=== PATIENT | female | born 1980 | race Caucasian/White ===

== ENCOUNTER 2022-04-26 08:52 | Outpatient (CLI) | payer BC, SELFPAY ==
[2022-04-26 10:26] LABS: Cholesterol* 181 mg/dL (90-199)
[2022-04-26 10:27] LABS: Glucose* 85 mg/dL (60-115); HDL Cholesterol* 84 mg/dL (>=50); LDL Cholesterol Calculated 86 mg/dL (<100); Triglycerides* 54 mg/dL (40-149)
[2022-04-26 15:13] LABS: Free T4 Free Thyroxine* 0.94 ng/dL (0.70-1.85)
== END 2022-04-26 08:53 | disposition home or self-care (01) ==
PROVIDERS: PCP Family Medicine; Visit Provider Family Medicine
DX: Z01.419 Encounter for gynecological examination (general) (routine) without abnormal findings (principal); F41.9 Anxiety disorder, unspecified; R79.89 Other specified abnormal findings of blood chemistry; Z13.1 Encounter for screening for diabetes mellitus; Z13.6 Encounter for screening for cardiovascular disorders
CPT/HCPCS: 80061; 82947; 84439; 84443

== ENCOUNTER 2022-07-26 17:31 | Outpatient (CLI) | payer BC, SELFPAY ==
--- NOTE | 2022-07-26 18:00 | CRLHL7_ITS ---
For Patients: As a result of the Cures Act, medical imaging exams and procedure reports are released immediately into your electronic medical record. You may view this report before your referring provider. If you have questions, please contact your health care provider. BILATERAL SCREENING MAMMOGRAM WITH COMPUTER-AIDED DETECTION AND TOMOSYNTHESIS TECHNIQUE: CC and MLO views were obtained. These mammographic images have been obtained using full-field digital technique. These mammographic images were interpreted with the benefit of computer-aided detection. Breast tomosynthesis was used in this interpretation. COMPARISON FILM: None. This is a baseline study. FINDINGS: The breasts are heterogeneously dense, which may obscure small masses. IMPRESSION: There is no radiographic evidence for malignancy. ASSESSMENT: BI-RADS Category 2: Benign RECOMMENDATION: Routine screening mammogram in 1 year. A lay language report of this examination will be provided to the patient. CHARLEE MARTINEZ M.D. Diagnostic/Breast Radiologist [email or web address] Transcribed: 07/27/2022, 2:[address]/Dictated by: Charlee Martinez MD @ 07/27/2022 8:20:00 AM (Electronically Signed)
== END 2022-07-26 17:32 | disposition home or self-care (01) ==
LOC: MAMMO 17:32
PROVIDERS: PCP Family Medicine; Visit Provider Family Medicine
DX: Z12.31 Encounter for screening mammogram for malignant neoplasm of breast (principal); R92.2 Inconclusive mammogram
CPT/HCPCS: 77063; 77067

== ENCOUNTER 2023-06-25 06:49 | Emergency (ER) | payer BC, SELFPAY ==
[2023-06-25 06:55] VITALS: BP 128/84; PULSE 105; RESP 18; TEMP 36.6; O2SAT 99; BMI 21.5
--- NOTE | 2023-06-25 07:38 | ED.GENADULT ---
HPI - General Adult General Chief complaint: Anxiety Stated complaint: shortness of breath, anxiety Time Seen by Provider: 06/25/23 06:56 Source: patient Mode of arrival: ambulatory Limitations: no limitations History of Present Illness HPI narrative: 42-year-old female presents the emergency department with concerns with anxiety, amplifying over the last few days. She also has concerns about the veins in her legs and is concerned that this could be related to a blood clot. She does have a history of anxiety disorder. She has used ashwaganda with route supplement starting 5 years ago. She discontinued this about 4 months ago. She says that she discontinued it when she was feeling unwell with respiratory symptoms that I interpret as the an acute viral illness and never restarted the medication. She states that she has been feeling more anxious for the last few days, becoming fixated on the possibility of blood clots in her legs. Her father of an SD and pulmonary embolism at age 51. It sounds as though this was sudden and surprising. She has become fixated on the possibility of blood clots in her legs in the past. Once, her provider, in attempt to reduce her worry, ordered a D-dimer which was elevated. This can commonly be elevated in runners. She then subsequently had a ultrasound of legs and apparently some sort of lung study which were benign. She shows me very mildly tortuous superficial spider veins around the knee and ankle. She reports that these have been present for at least several weeks but probably longer. They do go back down during the day and are a little more prominent 1st thing in the morning. No trauma or injury. They are bilateral. They are little more prominent on the left side. They do not hurt. There is no significant swelling in the leg. She does get short of breath with anxiety. 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 She has not noticed any decrease in her exercise capacity, speed or fitness level. She has never been hospitalized for her moods and denies any intent of self-harm, suicidal thoughts or general impairment in her functioning due to her anxiety. Denies any acute financial, social changes or other stressors that have impacted her anxiety recently. She has not seen her primary care provider or been evaluated in the emergency department recently for this. Note reviewed from 2018. Past medical history is notable for some concerns regarding anxiety. Family history noted as stated above. No prescription medications but did recently restart the root supplement as stated above. No allergies. Nonsmoker. Very rare alcohol useer. ROS is notable for the anxiety, chest, leg concerns as described above only, otherwise denies times 12 systems. Related Data Home Medications Medication Instructions Recorded Confirmed multivitamin 1 tab PO QDAY 03/04/22 05/18/22 omega 6-mhm-pyp-fish oil 100 1 cap PO QDAY 03/04/22 05/18/22 mg-160 mg-1,000 mg capsule (Fish Oil) lactobacillus combination no.9 4 4,000 mmu cells PO 04/26/22 05/18/22 billion cell capsule (Adult 50 Plus Probiotic) ashwagandha root extract 300 mg mg PO 05/18/22 05/18/22 capsule turmeric 400 mg capsule mg PO 05/18/22 05/18/22 Previous Rx's Medication Instructions Recorded hydroxyzine pamoate 25 mg capsule 25 mg PO BID PRN anxiety #30 caps 06/25/23 (Vistaril) Allergies Allergy/AdvReac Type Severity Reaction Status Date / Time No Known Drug Allergies Allergy Unverified 05/18/22 07:23 [facility] Medical History Pain of left breast ?N64.4 - Mastodynia (ICD-10) History of varicella ?Z86.19 - Personal history of other infectious and parasitic diseases (ICD-10) Anxiety about health ?F41.8 - Other specified anxiety disorders (ICD-10) Anxiety ?F41.9 - Anxiety disorder, unspecified (ICD-10) Acne (12/26/14) ?L70.9 - Acne, unspecified (ICD-10) Abnormal finding on thyroid function test ?R94.6 - Abnormal results of thyroid function studies (ICD-10) Surgical History History of dilation and curettage (2005) ?Z98.890 - Other specified postprocedural states (ICD-10) Family History Paternal Grandmother Breast cancer, Onset Age: 75 Mother High blood pressure Father Myocardial infarction, Onset Age: 51 Social History Narrative: , 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[place], 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 3-4 times week- runs about 3-1/2 mi, also walks her 2 dogs non-smoker Rare alcohol, 3 drinks a month Smoking Status: Never smoker Little interest or pleasure in doing things: not at all Feeling down, depressed, or hopeless: not at all Exam Const: Vital Signs, click to edit/add: Vital Signs - 24 hr 06/25/23 06:55 Temperature 97.9 F Pulse Rate [Pulse Oximeter] 105 H Respiratory Rate 18 Blood Pressure [Ri ght Upper Arm] 128/84 Pulse Oximetry 99 Oxygen Delivery Me thod Room Air Documenting provider has reviewed patient's vital signs: yes Common normals: no apparent distress and alert General appearance: cooperative, comfortable and well kempt Other: Well hydrated, well groomed, well nourished. Speaks in full sentences, logical. Insightful. HENMT: Common normals: normocephalic Head and scalp: normal to inspection and normocephalic Mouth: oral and palatal mucosa normal Throat: posterior oropharynx normal Eye: Common normals: conjunctivae normal General eye: normal appearance of both eyes Conjunctiva: conjunctiva(e) normal Neck & C-Spine: Common normals: full ROM and no lymphadenopathy Resp: Common normals: normal respiratory effort and no use of accessory muscles Effort & inspection: able to speak in complete sentences Cardio: Common normals: regular rate, regular rhythm, S1 normal heart sound, S2 normal heart sound and no murmurs Rate: regular rate Rhythm: regular rhythm Heart sounds: S1 normal and S2 normal GI: Common normals: Normal to inspection, nondistended, normoactive bowel sounds present, soft to palpation, non-tender, no hepatosplenomegaly and no masses Palpation: soft and no hepatosplenomegaly Extremity: Common normals: normal to inspection, full ROM, normal capillary refill, no joint enlargement, no calf tenderness and no pedal edema Other: Very few spider veins on the lower extremities near the joints but certainly no signs of blood clot, no palpable cords, negative Homans sign. No tortuous varicosities. Neuro: Sensorium/orientation: alert Speech: speech normal Motor exam: no tremor noted and no movement abnormalities noted Psych: Common normals: thought process normal and speech normal Appearance: well kempt Attitude: engaged Activity/motor behavior: appropriate eye contact Speech: normal speech Mood and affect: euthymic mood Thought process: normal thought process Thought content: normal thought content Attention/concentration: attention grossly intact Memory/cognition: memory grossly intact Insight: insight good Judgement: judgment good Other: Mildly anxious but easily redirectable. Skin: Common normals: no rashes or lesions noted General skin exam: no rashes or lesions noted Course Course ED Course: Heart rate improved at the time of my exam to below 90. Patient with history of anxiety, recently restarting a vitamin supplement which has been helpful for her anxiety in the past. Showing some signs of fixation on health concerns which are really not substantiated by exam today. Patient counseled on the anatomy of the deep and superficial vein systems, discussed exercise tolerance as a good indicator of heart and lung issues for non severe, sudden symptoms. Her reassured on the venous findings. I do not recommend that we repeat her D-dimer as it will likely be a little elevated as it has genetically benzo in the past. I do not recommend ultrasounds of the leg since the physical exam is so benign and she does not have additional risk factors for DVT. Cardiopulmonary exam is also reassuring. I do not recommend further workup on this and do review the previously performed blood tests. We discussed long-term verses short-term management of her anxiety. For short-term anxiety, I have recommended an on demand medications such as either Ativan or Vistaril. We discussed each and she was willing to take her prescription for Vistaril but not a tablet to try here in the ED. a prescription will be sent to her pharmacy per her request. I have encouraged her to try this today so that she can assess her response to the medication. This would give her useful information if she needed to use the medication again in the future. Additional refills are need to come from her primary care provider. Counseled on long-term management of her anxiety, she would be a good candidate to restart counseling. Discussed continuing her route supplement. It has been helpful for her in the past, therefore I would recommend that she give it at least 2-3 weeks to assess clinical response. Would like for her to make a follow-up appointment with her primary care provider 3 weeks from now to update on progress and change of course if insufficient progress. She would be a candidate for low-dose SSRI or a low-dose extended-release propranolol either as an on demand or daily medication. She will discuss these further with her primary care provider if she is not making sufficient progress with her plan. Reviewed alarm symptoms that would warrant ED presentation. She verbalizes understanding and agreement and is happy with the conservative management for today. Vital Signs Vital signs: Initial Vital Signs Temperature 97.9 F 06/25/23 06:55 Temperature Source Temporal Artery Scan 06/25/23 06:55 Pulse Rate 105 H 06/25/23 06:55 Respiratory Rate 18 06/25/23 06:55 Blood Pressure 128/84 06/25/23 06:55 Blood Pressure Mean 98 06/25/23 06:55 Blood Pressure Position Sitting 06/25/23 06:55 Pulse Oximetry 99 06/25/23 06:55 Oxygen Delivery Method Room Air 06/25/23 06:55 Vital Signs Temperature 97.9 F 06/25/23 06:55 Pulse Rate 105 H 06/25/23 06:55 Respiratory Rate 18 06/25/23 06:55 Blood Pressure 128/84 06/25/23 06:55 Pulse Oximetry 99 06/25/23 06:55 Oxygen Delivery Method Room Air 06/25/23 06:55 Temperature 97.9 F 06/25/23 06:55 Pulse Rate 105 H 06/25/23 06:55 Respiratory Rate 18 06/25/23 06:55 Blood Pressure 128/84 06/25/23 06:55 Pulse Oximetry 99 06/25/23 06:55 Oxygen Delivery Method Room Air 06/25/23 06:55 Discharge Plan Discharge Instructions: Generalized Anxiety Disorder (ED) Additional Instructions: As we discussed, the slight aging changes that you see in the superficial veins of your legs are not consistent with problems in the deep vein system. The superficial veins actually do not connect back to the heart and lungs in a way that would be dangerous if there were a blood clot. Thankfully, I also do not see any signs of blood clots in the superficial or deep veins. I do not recommend that we repeat your blood work or ultrasounds regarding this. You agreed with my assessment upon our discussion. I am glad that you decided to restart your supplement. As we discussed, sometimes this can actually increase your anxiety for 3-4 days until it starts to help. I would give this medication about 3 weeks. I would go ahead and make a follow-up appointment with your primary care provider in [address] if things are not improving as expected, you already have an appointment to discuss alternative treatments. Reconsider restarting counseling. We discussed alternative medications that may be helpful for you. I think you could actually be a candidate for low-dose, extended-release propranolol. You would also be a candidate for low-dose SSRI like Lexapro. We discussed on demand medication that you can use for panic attacks. I think he would be a very good fit for these medications. We discussed Vistaril, also known as hydroxyzine. This is a safer, non addictive medication that can be used to help treat acute anxiety. It actually can be used multiple times daily if needed but I suspect you will only need it a couple of times per week on average. The other medication that we discussed is Ativan and we both agree that we should try something product applications engineer 1st but this also may be a consideration for you to use once in a while if the Vistaril is not effective. I have given you a prescription for Vistaril to use. I actually would recommend that you take a dose today so that you can assess your response to the medication and see how well it works for you. This way could serve you better in an on demand situation. If you need additional refills, please discussed with her primary care provider. It is difficult to sort out anxiety and health concerns. At this time, I do not recommend more exhaustive emergency department workup for any acute health concerns today. Remember that as we discussed, almost all heart and blood clot problems will significantly amplify with exercise. Since you have not noticed any changes in your ability to long distance run, this is also somewhat reassuring and may be a better radar for you rather than symptoms at rest in determining if there are problems. You may resume all activity with no restrictions at this time. Activity Level: No Restrictions Discharge Diet: Regular Prescriptions: New hydroxyzine pamoate [Vistaril] 25 mg capsule 25 mg PO BID PRN (Reason: anxiety) Qty: 30 0RF No Action Adult 50 Plus Probiotic 4 billion cell capsule 4,000 mmu cells PO turmeric 400 mg capsule PO ashwagandha root extract 300 mg capsule PO multivitamin Tablet 1 tab PO QDAY Fish Oil 100-160-1,000 mg capsule 1 cap PO QDAY Follow Up/Referrals: Alanis Crouch MD [Primary Care Provider] - Stand Alone Forms: [facility] Info Instructions
== END 2023-06-25 07:47 | disposition home or self-care (01) ==
PROVIDERS: Emergency Provider Family Medicine; PCP Family Medicine
DX: F41.9 Anxiety disorder, unspecified (principal)
CPT/HCPCS: 99283

== ENCOUNTER 2023-06-29 07:54 | Outpatient (CLI) | payer BC, SELFPAY | END 2023-06-29 07:55 | disposition home or self-care (01) | PROVIDERS: PCP Family Medicine; Visit Provider Family Medicine | DX: Z13.220 Encounter for screening for lipoid disorders (principal); Z13.29 Encounter for screening for other suspected endocrine disorder; Z13.1 Encounter for screening for diabetes mellitus | CPT/HCPCS: 80061; 82947; 84443 ==

== ENCOUNTER 2023-08-01 11:14 | Emergency (ER) | payer BC, SELFPAY ==
[2023-08-01 11:17] VITALS: BP 125/87; PULSE 88; RESP 18; TEMP 36.4; O2SAT 100; BMI 22.0
--- NOTE | 2023-08-01 11:55 | ED.GENADULT ---
HPI - General Adult General Chief complaint: Unspecified Complaint, Adult Stated complaint: dizziness, bulging vein on neck Time Seen by Provider: 08/01/23 11:18 History of Present Illness HPI narrative: This 43-year-old female comes in reporting anxiety symptoms and concern about occasional bulging of a vein in the left side of her neck. She states that she is been having palpitations since discontinuing an herbal medicine she used for anxiety. She has restarted this because it was helping her over the past 5 years or so. She has been in to her regular doctor and visited the emergency department here in the past several months. She did get a prescription for Vistaril but states that it did not help her much for anxiety. She is not on any antidepressant medicines. She states that she runs regularly and does not have any symptoms with exertion. She does have palpitations frequently and feels them sometimes also when she is exercising. Her primary concern is her anxiety which has become rather significant. She does not report any feeling of being unsafe to herself. She has started taking propranolol which she states has helped with the palpitations and perhaps some with anxiety symptoms. Related Data Home Medications Medication Instructions Recorded Confirmed multivitamin 1 tab PO QDAY 03/04/22 07/26/23 omega 2-osx-gea-fish oil 100 1 cap PO QDAY 03/04/22 07/26/23 mg-160 mg-1,000 mg capsule (Fish Oil) lactobacillus combination no.9 4 4,000 mmu cells PO 04/26/22 07/26/23 billion cell capsule (Adult 50 Plus Probiotic) ashwagandha root extract 300 mg 300 mg PO .QD 06/29/23 07/26/23 capsule turmeric 400 mg capsule 400 mg PO .QD 06/29/23 07/26/23 Previous Rx's Medication Instructions Recorded hydroxyzine pamoate 25 mg capsule 25 mg PO BID PRN anxiety #30 caps 06/25/23 (Vistaril) propranolol 10 mg tablet 10 mg PO TID #90 tabs 07/26/23 escitalopram oxalate 10 mg tablet 10 mg PO DAILY #30 tabs 08/01/23 (Lexapro) lorazepam 0.5 mg tablet (Ativan) 0.5 mg PO BID PRN #15 tabs 08/01/23 Allergies Allergy/AdvReac Type Severity Reaction Status Date / Time No Known Drug Allergies Allergy Unverified 07/26/23 07:57 Review of Systems Status of ROS: Reports: 10 or more systems reviewed and unremarkable except as noted in History and below Narrative: Constitutional: No fevers, no weight gain or loss. Eyes: No discharge. No vision changes. HENT: No congestion, no sore throat, no ear pain. Cardiovascular: No chest pain. Palpitations. Respiratory: No shortness of breath, no wheezes, no cough. Gastrointestinal: No abdominal pain, no vomiting, no diarrhea. Genitourinary: No dysuria, no hematuria. Musculoskeletal: Normal range of motion. Skin: No rashes, no pruritis. Neurological: No dizziness, weakness, sensory change, speech change. Endo/Heme/Allergies: No bruising or bleeding. No polydipsia. Pysch: no suicidality, no insomnia. She has anxiety symptoms. All other systems reviewed and are negative. [facility] Medical History (Updated 08/01/23 @ 12:26 by Luis Bassett MD) Palpitations ?R00.2 - Palpitations (ICD-10) Pain of left breast ?N64.4 - Mastodynia (ICD-10) History of varicella ?Z86.19 - Personal history of other infectious and parasitic diseases (ICD-10) Anxiety about health ?F41.8 - Other specified anxiety disorders (ICD-10) Anxiety ?F41.9 - Anxiety disorder, unspecified (ICD-10) Acne (12/26/14) ?L70.9 - Acne, unspecified (ICD-10) Abnormal finding on thyroid function test ?R94.6 - Abnormal results of thyroid function studies (ICD-10) Surgical History History of dilation and curettage (2005) ?Z98.890 - Other specified postprocedural states (ICD-10) Family History Paternal Grandmother Breast cancer, Onset Age: 75 Mother High blood pressure Father Myocardial infarction, Onset Age: 51 Social History (Updated 06/29/23 @ 08:09 by Cris Azar~[facility], [facility]) 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: , 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[place], 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 3-4 times week- runs about 3-1/2 mi, also walks her 2 dogs non-smoker Rare alcohol, 3 drinks a month What is your current living situation?: I presently have a place to live Problems where you live: declined to answer In the past 12 months, utilities in danger of being shut off: no In past 12 months, lack of transportation kept you from medical appts, meetings, work, or getting things needed for daily living: no In the past 12 mos, have been you worried that your food would run out before you had money to buy more?: never true In the past 12 mos, the food you bought just didn't last and you didn't have money to buy more?: never true Smoking Status: Never smoker How often does anyone, including family, friends and others, physically hurt you: never How often does anyone, including family, friends and others, insult or talk down to you: never How often does anyone, including family, friends and others, threaten you with harm: never How often does anyone, including family, friends and others, scream or curse at you: never Little interest or pleasure in doing things: not at all Feeling down, depressed, or hopeless: not at all Exam Narrative: Exam Narrative: Constitutional: Well-developed, well-nourished, no acute distress. HEENT: Normocephalic, atraumatic. Neck: Normal range of motion. Nontender. Supple. Heart: Regular. No murmurs. Normal rate. Intact distal pulses. Lungs: Clear to auscultation. No chest discomfort. No wheezes, rhonchi, or rales. Abdomen: Normal bowel sounds. Nontender. No rebound tenderness. Genitalia: Deferred. Back: No midline tenderness. Normal range of motion. Extremities: Normal range of motion. No injury. Skin: Intact. No rash. Warm. No erythema or pallor. Neurologic: No altered sensation. No weakness. Alert and oriented. Psychiatric: No suicidality. No depression. No insomnia. She has report of anxiety symptoms but does not appear overly particularly anxious at the time. Nursing notes and vitals signs are reviewed. Const: Vital Signs, click to edit/add: Vital Signs - 24 hr 08/01/23 11:17 Temperature 97.5 F L Pulse Rate [Right Pulse Oximeter] 88 Respiratory Rate 18 Blood Pressure [Ri ght Upper Arm] 125/87 Pulse Oximetry 100 Oxygen Delivery Me thod Room Air Course Vital Signs Vital signs: Initial Vital Signs Temperature 97.5 F L 08/01/23 11:17 Temperature Source Temporal Artery Scan 08/01/23 11:17 Pulse Rate 88 08/01/23 11:17 Respiratory Rate 18 08/01/23 11:17 Blood Pressure 125/87 08/01/23 11:17 Blood Pressure Mean 99 08/01/23 11:17 Blood Pressure Position Sitting 08/01/23 11:17 Pulse Oximetry 100 08/01/23 11:17 Oxygen Delivery Method Room Air 08/01/23 11:17 Vital Signs Temperature 97.5 F L 08/01/23 11:17 Pulse Rate 88 08/01/23 11:17 Respiratory Rate 18 08/01/23 11:17 Blood Pressure 125/87 08/01/23 11:17 Pulse Oximetry 100 08/01/23 11:17 Oxygen Delivery Method Room Air 08/01/23 11:17 Temperature 97.5 F L 08/01/23 11:17 Pulse Rate 88 08/01/23 11:17 Respiratory Rate 18 08/01/23 11:17 Blood Pressure 125/87 08/01/23 11:17 Pulse Oximetry 100 08/01/23 11:17 Oxygen Delivery Method Room Air 08/01/23 11:17 Medical Decision Making MDM Narrative Medical decision making narrative: This patient reports anxiety symptoms that are not well managed. She has some palpitations also. She has had a visit to the ER and to her primary physician regarding this. She was concerned because she sees some bulging of a vein on occasion in the left side of her neck. She does not have any heart history and shows no sign of heart failure. She exercises and runs regularly without any symptoms. I did discuss cardiovascular factors and gave reassurance to her regarding palpitations and the occasions of seeing a jugular vein in her neck. The patient has significant anxiety that is not adequately treated. I did provide prescription for Lexapro and some tablets of Ativan to bridge until this medicine hopefully will help. Discharge Plan Discharge Clinical Impression: Palpitations, Anxiety Patient Disposition: Home, Self-Care Condition: Stable Additional Instructions: Take medication as prescribed. Follow up with MD or return if worsening. Prescriptions: New lorazepam [Ativan] 0.5 mg tablet 0.5 mg PO BID PRNQty: 15 0RF escitalopram oxalate [Lexapro] 10 mg tablet 10 mg PO DAILY Qty: 30 2RF No Action Adult 50 Plus Probiotic 4 billion cell capsule 4,000 mmu cells PO ashwagandha root extract 300 mg capsule 300 mg PO .QD turmeric 400 mg capsule 400 mg PO .QD propranolol 10 mg tablet 10 mg PO TID Qty: 90 3RF hydroxyzine pamoate [Vistaril] 25 mg capsule 25 mg PO BID PRN (Reason: anxiety) Qty: 30 0RF multivitamin Tablet 1 tab PO QDAY Fish Oil 100-160-1,000 mg capsule 1 cap PO QDAY Follow Up/Referrals: Alanis Crouch MD [Primary Care Provider] - Stand Alone Forms: [facility] Info Instructions
== END 2023-08-01 12:33 | disposition home or self-care (01) ==
PROVIDERS: Emergency Provider Emergency Medicine Emergency Medical Services; PCP Family Medicine
DX: R00.2 Palpitations (principal); F41.9 Anxiety disorder, unspecified
CPT/HCPCS: 99283; 99284

== ENCOUNTER 2023-08-03 13:35 | Outpatient (CLI) | payer BC, SELFPAY ==
[2023-08-03 15:24] VITALS: BP 118/82; PULSE 104; RESP 16
--- NOTE | 2023-08-03 15:29 | W.PM.STED ---
Stress Test Note Date Date of test: 08/03/23 Providers Primary care provider: Alanis Crouch Stress test physician: oJse Gardiner Stress Test Note Stress test ordered: Stress Echo Indication for test: arrythmia Results discussion: Patient is a very nice 43-year-old female who presents for the above test after discussion of the risks benefits and side effects of the test, she would like to proceed cardiac stress test medical history form is reviewed. Pretest EKG shows normal sinus rhythm, ventricular rate 100, blood pressure 112/76, no acute ST wave changes are noted. Standard [facility] protocol is employed over a time course of 12 minutes 31 seconds, maximum heart rate was 161, which is 106% of the maximum. There were no dysrhythmias occasional PACs and PVCs were noted. No diagnostic ST wave changes were noted. There are no other dysrhythmias, test is terminated because of fulfillment of protocol, she had no symptomatic complaints Impression: Negative electrographic portion of stress echo, conditioning was felt to be excellent Follow up suggested: Await echo images these will be read by Cardiology, clinical correlation with these be needed, she left this testing facility in excellent condition
== END 2023-08-03 15:05 | disposition home or self-care (01) ==
PROVIDERS: PCP Family Medicine; Visit Provider Family Medicine
DX: I49.9 Cardiac arrhythmia, unspecified (principal); R00.2 Palpitations
CPT/HCPCS: 93016; 93325; 93351

== ENCOUNTER 2024-07-15 09:52 | Outpatient (CLI) | payer BC, SELFPAY ==
--- NOTE | 2024-07-15 10:15 | CRLHL7_ITS ---
For Patients: As a result of the Century Cures Act, medical imaging exams and procedure reports are released immediately into your electronic medical record. You may view this report before your referring provider. If you have questions, please contact your health care provider. BILATERAL SCREENING MAMMOGRAM WITH COMPUTER-AIDED DETECTION AND TOMOSYNTHESIS TECHNIQUE: CC and MLO views were obtained. These mammographic images have been obtained using full-field digital technique. These mammographic images were interpreted with the benefit of computer-aided detection. Breast Tomosynthesis was used in this interpretation. COMPARISON FILM: 07/26/22. FINDINGS: The breasts are extremely dense, which lowers the sensitivity of mammography. IMPRESSION: There is no radiographic evidence for malignancy. ASSESSMENT: BI-RADS Category 2: Benign RECOMMENDATION: Routine screening mammogram in 1 year. A lay language report of this examination will be provided to the patient. Zoran Brown M.D. Diagnostic Radiologist [email or web address] SP/Dictated by: Zoran Brown MD @ 07/15/2024 10:34:00 AM (Electronically Signed)
== END 2024-07-15 09:53 | disposition home or self-care (01) ==
LOC: MAMMO 09:52
PROVIDERS: PCP Family Medicine; Visit Provider Family Medicine
DX: Z12.31 Encounter for screening mammogram for malignant neoplasm of breast (principal); R92.343 Mammographic extreme density, bilateral breasts
CPT/HCPCS: 77063; 77067